=== PATIENT | male | born 1945 | race Caucasian/White ===

== ENCOUNTER → 2019-10-14 13:02 | Outpatient (BNVA) | payer OTHER, SELFPAY | PROVIDERS: Family Provider Emergency Medicine Emergency Medical Services; PCP Emergency Medicine Emergency Medical Services; Visit Provider Anesthesiology | DX: M54.5 Low back pain (principal); F17.210 Nicotine dependence, cigarettes, uncomplicated; Z79.891 Long term (current) use of opiate analgesic; Z71.6 Tobacco abuse counseling | CPT/HCPCS: 99214 ==

== ENCOUNTER → 2020-02-05 09:54 | Outpatient (BNVA) | payer OTHER, SELFPAY | PROVIDERS: Family Provider Emergency Medicine Emergency Medical Services; PCP Emergency Medicine Emergency Medical Services; Visit Provider Anesthesiology | DX: M54.41 Lumbago with sciatica, right side (principal); M54.42 Lumbago with sciatica, left side; M54.9 Dorsalgia, unspecified; F17.210 Nicotine dependence, cigarettes, uncomplicated; Z79.891 Long term (current) use of opiate analgesic | CPT/HCPCS: 99213; 99214 ==

== ENCOUNTER → 2020-04-08 09:00 | Outpatient (BNVA) | payer OTHER, SELFPAY | PROVIDERS: Family Provider Emergency Medicine Emergency Medical Services; PCP Emergency Medicine Emergency Medical Services; Visit Provider Anesthesiology | DX: M54.42 Lumbago with sciatica, left side (principal); M54.41 Lumbago with sciatica, right side; M54.9 Dorsalgia, unspecified; F17.210 Nicotine dependence, cigarettes, uncomplicated; Z79.891 Long term (current) use of opiate analgesic | CPT/HCPCS: 99213; 99214 ==

== ENCOUNTER → 2020-06-17 07:50 | Outpatient (BNVA) | payer OTHER, SELFPAY | PROVIDERS: Family Provider Emergency Medicine Emergency Medical Services; PCP Emergency Medicine Emergency Medical Services; Visit Provider Anesthesiology | DX: M54.9 Dorsalgia, unspecified (principal); F17.210 Nicotine dependence, cigarettes, uncomplicated; Z79.891 Long term (current) use of opiate analgesic | CPT/HCPCS: 99212; 99214 ==

== ENCOUNTER → 2020-08-12 07:53 | Outpatient (BNVA) | payer OTHER, SELFPAY | PROVIDERS: Family Provider Emergency Medicine Emergency Medical Services; PCP Emergency Medicine Emergency Medical Services; Visit Provider Anesthesiology | DX: M54.41 Lumbago with sciatica, right side (principal); M54.9 Dorsalgia, unspecified; F17.210 Nicotine dependence, cigarettes, uncomplicated; Z79.891 Long term (current) use of opiate analgesic | CPT/HCPCS: 99212; 99214 ==

== ENCOUNTER → 2020-10-07 09:37 | Outpatient (BNVA) | payer OTHER, SELFPAY | PROVIDERS: Family Provider Emergency Medicine Emergency Medical Services; PCP Emergency Medicine Emergency Medical Services; Visit Provider Anesthesiology | DX: M54.9 Dorsalgia, unspecified (principal); F17.210 Nicotine dependence, cigarettes, uncomplicated; Z79.891 Long term (current) use of opiate analgesic | CPT/HCPCS: 99213 ==

== ENCOUNTER → 2020-12-07 08:37 | Outpatient (BNVA) | payer OTHER, SELFPAY | PROVIDERS: Family Provider Emergency Medicine Emergency Medical Services; PCP Emergency Medicine Emergency Medical Services; Visit Provider Anesthesiology | DX: G89.29 Other chronic pain (principal); M54.41 Lumbago with sciatica, right side; M54.42 Lumbago with sciatica, left side; M54.9 Dorsalgia, unspecified; F17.210 Nicotine dependence, cigarettes, uncomplicated; Z79.891 Long term (current) use of opiate analgesic | CPT/HCPCS: 99213 ==

== ENCOUNTER → 2021-02-02 07:51 | Outpatient (BNVA) | payer OTHER, SELFPAY | PROVIDERS: Family Provider Emergency Medicine Emergency Medical Services; PCP Emergency Medicine Emergency Medical Services; Visit Provider Anesthesiology | DX: G89.29 Other chronic pain (principal); M54.5 Low back pain; F17.210 Nicotine dependence, cigarettes, uncomplicated; Z79.891 Long term (current) use of opiate analgesic | CPT/HCPCS: 99213 ==

== ENCOUNTER → 2021-04-05 07:55 | Outpatient (BNVA) | payer OTHER, SELFPAY | PROVIDERS: Family Provider Emergency Medicine Emergency Medical Services; PCP Emergency Medicine Emergency Medical Services; Visit Provider Anesthesiology | DX: G89.29 Other chronic pain (principal); M54.5 Low back pain; F17.210 Nicotine dependence, cigarettes, uncomplicated; Z79.891 Long term (current) use of opiate analgesic | CPT/HCPCS: 99213 ==

== ENCOUNTER → 2021-06-09 07:54 | Outpatient (BNVA) | payer OTHER, SELFPAY | PROVIDERS: Family Provider Emergency Medicine Emergency Medical Services; PCP Emergency Medicine Emergency Medical Services; Visit Provider Anesthesiology | DX: G89.29 Other chronic pain (principal); M54.50 Low back pain, unspecified; F17.210 Nicotine dependence, cigarettes, uncomplicated; Z79.891 Long term (current) use of opiate analgesic | CPT/HCPCS: 99213 ==

== ENCOUNTER → 2021-08-03 08:08 | Outpatient (BNVA) | payer OTHER, SELFPAY | PROVIDERS: Family Provider Emergency Medicine Emergency Medical Services; PCP Emergency Medicine Emergency Medical Services; Visit Provider Anesthesiology | DX: G89.29 Other chronic pain (principal); M54.50 Low back pain, unspecified; Z79.891 Long term (current) use of opiate analgesic; F17.200 Nicotine dependence, unspecified, uncomplicated; Z71.6 Tobacco abuse counseling | CPT/HCPCS: 99214 ==

== ENCOUNTER → 2021-10-13 09:23 | Outpatient (BNVA) | payer OTHER, SELFPAY | PROVIDERS: Family Provider Emergency Medicine Emergency Medical Services; PCP Emergency Medicine Emergency Medical Services; Visit Provider Anesthesiology | DX: G89.29 Other chronic pain (principal); M54.50 Low back pain, unspecified; F17.210 Nicotine dependence, cigarettes, uncomplicated; Z79.891 Long term (current) use of opiate analgesic; Z71.6 Tobacco abuse counseling | CPT/HCPCS: 99213 ==

== ENCOUNTER 2022-01-15 09:33 | Emergency (ER) | payer OTHER, SELFPAY ==
[2022-01-15 09:43] VITALS: BP 128/86; PULSE 120; RESP 18; O2SAT 95; BMI 26.4
[2022-01-15 09:48] VITALS: BP 128/86; PULSE 98; RESP 18; O2SAT 95
--- NOTE | 2022-01-15 10:08 | W.ED.FALL ---
HPI - Fall General: Chief Complaint: Fall Stated Complaint: thinks he may have had a stroke Time Seen by Provider: 01/15/22 09:52 Source: patient Mode of arrival: ambulatory Limitations: no limitations History of Present Illness: 76-year-old male presents emergency room with complaints of frequent falls recently. Patient states his legs it is been getting weak at some bilateral thing is not noticed any other difficulty speech swallowing or sensation. Family is at the bedside endorses been going on for some time. He also drinks on a regular basis according to the son is at the bedside patient does not really quantify how much for me. He denies chest pain or abdominal pain they have noticed some mild abdominal bloating. His balance has been poor. Patient mention he was referred to a clinic in town by the [place]. In discussing with him and its location as he described that I suspect that is the nephrology clinic patient is not sure of the name of the doctor he was being sent to see. Today when he fell he hit his head he is complaining of head neck and back pain the neck and back pain are chronic the head pain is new he denies loss of consciousness. MD complaint: fall Onset (ago): minute(s) Fall from: standing Fall witnessed: yes, by family Place fall occurred: home Loss of consciousness: None Prolonged down time: no Symptoms prior to fall: none Context: tripped/slipped and history of frequent falls Location of injury: head Associated symptoms-after fall: Reports confusion, difficulty walking and neck pain; Denies abdominal pain, chest pain, headache(s), hematuria, lightheadedness, numbness, short of breath, vertigo or weakness Review of Systems Const: Denies: fever(s), chills, body aches, change in appetite, fatigue or malaise ENMT: Denies: throat pain, ear or mastoid pain, nasal discharge or nasal congestion Card: Denies: chest pain or lightheadedness Resp: Denies: dyspnea, productive cough or non-productive cough GI: Denies: abdominal pain, nausea or vomiting : Denies: flank pain, difficulty urinating, dysuria, urinary frequency, urinary urgency or hematuria Musc: Reports: neck pain and back pain; Denies: extremity pain Skin/Breast: Denies: rash or pruritus Neuro: Reports: difficulty walking and confusion; Denies: headache(s) or vertigo PFSH ED PFSH: Medical History Apnea, sleep Ascites Benign essential HTN Chronic low back pain Encounter for long-term opiate analgesic use Hx of pancreatitis Hypercholesteremia Ileus, unspecified Presence of cardiac pacemaker Shortness of breath on exertion Smoker unmotivated to quit Family History Brother Cancer Brother Cancer Father Dementia Mother Diabetes Other Hypertension Denies family history of CAD (coronary artery disease) Clotting disorder Chronic kidney disease (CKD) Suicide Anesthesia complication Bleeding disorder Lung disease Stroke Social History Smoking and tobacco status: current every day smoker cigarettes Packs smoked per day: 1 Second hand smoke exposure: Yes Alcohol intake: never History of recent travel: No Physical Exam Const: COMMON NORMALS: no acute distress GENERAL APPEARANCE: cooperative and comfortable ORIENTATION/CONSCIOUSNESS: Yes awake, Yes oriented to person, Yes oriented to place and Yes oriented to time HENMT: COMMON NORMALS: normocephalic, atraumatic and hearing grossly normal bilaterally HEAD & SCALP: normocephalic and atraumatic Neck/C-Spine: COMMON NORMALS: no JVD Resp: COMMON NORMALS: normal respiratory effort, No retractions, No use of accessory muscles and clear to auscultation bilaterally AUSCULTATION: clear to auscultation bilaterally Cardio: COMMON NORMALS: no JVD, regular rate, regular rhythm and No murmurs present (Cardio) RATE: regular rate RHYTHM: regular rhythm GI: COMMON NORMALS: Soft to palpation and No hepatosplenomegaly present AUSCULTATION: Yes normoactive bowel sounds PALPATION: Yes Soft to palpation, No Tenderness to palpation present (GI), No Guarding due to palpation present (GI) and Yes No hepatosplenomegaly present OTHER: We would waitNonincarcerated umbilical hernia no on exam Extremity: COMMON NORMALS: normal to inspection, capillary refill normal, no clubbing, cyanosis or edema, no calf tenderness and no pedal edema Neuro: SENSORIUM/ORIENTATION: Yes oriented to person, Yes oriented to place and Yes oriented to time Skin: COMMON NORMALS: no rashes or lesions noted GENERAL SKIN EXAM: no rashes or lesions noted Course Vital Signs: Vital signs: Vital Signs Pulse Rate 102 H 01/15/22 13:55 Respiratory Rate 15 01/15/22 13:55 Blood Pressure 150/94 01/15/22 13:55 Pulse Oximetry 97 01/15/22 13:55 MDM - Fall Medical Decision Making Stroke score done patient listed as a stroke score of 4 however he has weakness in hip flexors which has been a chronic problem has been leading to his falls it is bilateral it is been getting worse per the family over the last week or so. He still has 5 of 5 strength with dorsi and plantar flexion. He is able to lift the heel up off the bed but is not able to hold it up off the bed for an extended period of time. Clinically I do not believe in combination of the rest of his exam that this represents evidence of CVA. Repeat exam prior to discharge NIH score is still essentially 0. He can lift his legs up off the bed better he actually does better with [id number] with his left leg than his right but his right leg is stronger when he does tries to the leg raising. Talk to his family. Son is very concerned about his mom's drinking think that is contributing a lot to it. They would he would like to go home family is willing to take him home son does have some concerns about how well he is going to do at home. I strongly recommend that he does not drive a male or vehicle at all. I do not feel he is medically safe to operate a motor vehicle. Addition that we will get him home health care to do gait and stability training. Strongly recommend also that he abstain from alcohol. Medical Records I reviewed the patient's medical records. Lab Data I reviewed the patient's lab results. : 01/15/22 09:50 01/15/22 09:50 Radiology Impressions Cervical Spine CT 01/15/22 10:14 IMPRESSION: No evidence of acute fracture or dislocation. Head CT 01/15/22 10:14 IMPRESSION: 1. No evidence of intracranial hemorrhage or mass effect. 2. Moderate small vessel changes moderate parenchymal volume loss. 3. Tiny chronic lacunar infarct LEFT thalamus. 4. No acute intracranial findings. Laboratory Results WBC 5.8 10^3/uL (4.0-10.0) 01/15/22 09:50 RBC 4.39 10^6/uL (4.1-5.3) 01/15/22 09:50 Hgb 14.7 g/dL (11.7-16.6) 01/15/22 09:50 Hct 42.6 % (42.0-52.0) 01/15/22 09:50 MCV 97.0 fl (80-94) H 01/15/22 09:50 MCH 33.5 pg (28.0-34.0) 01/15/22 09:50 MCHC 34.5 g/dL (30.0-36.0) 01/15/22 09:50 RDW 13.7 % (12.1-15.1) 01/15/22 09:50 Plt Count 101 10^3/cmm (130-400) L 01/15/22 09:50 MPV 11.1 fL (7.4-10.4) H 01/15/22 09:50 Neut % (Auto) 75.8 % 01/15/22 09:50 Lymph % (Auto) 11.5 % 01/15/22 09:50 Clare % (Auto) 8.1 % 01/15/22 09:50 Eos % (Auto) 2.4 % 01/15/22 09:50 Baso % (Auto) 0.7 % 01/15/22 09:50 Neut # (Auto) 4.42 10^3/uL (1.8-7.7) 01/15/22 09:50 Lymph # (Auto) 0.7 10^3/uL (0.8-4.8) L 01/15/22 09:50 Clare # (Auto) 0.5 10^3/uL (0.2-0.9) 01/15/22 09:50 Eos # (Auto) 0.1 10^3/uL (0.0-0.8) 01/15/22 09:50 Baso # (Auto) 0.0 10^3/uL (0.0-0.1) 01/15/22 09:50 Nucleated RBC % (auto) 0 % 01/15/22 09:50 Nucleated RBCs # 0.0 /100WBC 01/15/22 09:50 PT 14.70 SECONDS (12.1-14.9) 01/15/22 10:35 INR 1.12 (0.8-1.2) 01/15/22 10:35 APTT 36.2 SECONDS (23.9-36.7) 01/15/22 10:35 Sodium 129 mmol/L (136-145) L 01/15/22 09:50 Potassium 3.5 mmol/L (3.5-5.1) 01/15/22 09:50 Chloride 89 mmol/L (98-107) L 01/15/22 09:50 Carbon Dioxide 21 mmol/L (22-29) L 01/15/22 09:50 Anion Gap 22.5 (5-19) H 01/15/22 09:50 BUN 11 mg/dL (8-23) 01/15/22 09:50 Creatinine 1.1 mg/dL (0.7-1.2) 01/15/22 09:50 GFR Calculation Not Reportable 01/15/22 09:50 Glucose 115 mg/dL (65-115) 01/15/22 09:50 Calculated Osmolality 268 mOsm/kg (285-295) L 01/15/22 09:50 Calcium 8.6 mg/dL (8.5-10.5) 01/15/22 09:50 Total Bilirubin 0.8 mg/dL (0.15-1.2) 01/15/22 09:50 AST 46 U/L (0-40) H 01/15/22 09:50 ALT 52 U/L (0-41) H 01/15/22 09:50 Alkaline Phosphatase 129 IU/L (40-130) 01/15/22 09:50 Ammonia 18 umol/L (16-60) 01/15/22 10:35 Total Protein 7.3 g/dL (6.6-8.7) 01/15/22 09:50 Albumin 3.7 g/dL (3.5-5.2) 01/15/22 09:50 Globulin 3.6 g/dL (1.3-4.6) 01/15/22 09:50 Urine Color Dark yellow (Yellow) 01/15/22 13:00 Urine Appearance Clear (CLEAR) 01/15/22 13:00 Urine pH 6 (5-7) 01/15/22 13:00 Ur Specific [place] 1.015 (1.005-1.030) 01/15/22 13:00 Urine Protein 3+ (Negative) H 01/15/22 13:00 Urine Glucose (UA) Norm (Normal) 01/15/22 13:00 Urine Ketones Negative (Negative) 01/15/22 13:00 Urine Blood Neg (Negative) 01/15/22 13:00 Urine Nitrate Negative (Negative) 01/15/22 13:00 Urine Bilirubin 1+ (Negative) H 01/15/22 13:00 Urine Urobilinogen 1 mg/dL (Negative) H 01/15/22 13:00 Ur Leukocyte Esterase Negative (Negative) 01/15/22 13:00 Urine RBC None /hpf (0-2) 01/15/22 13:00 Urine WBC 5-10 /hpf (0-5) H 01/15/22 13:00 Ur Squamous Epith Cells None /hpf (0-5) 01/15/22 13:00 Amorphous Sediment 1+ /hpf 01/15/22 13:00 Urine Bacteria 2+ /hpf (NONE) H 01/15/22 13:00 Discharge Plan Discharge Patient Disposition: Home Clinical Impression: Falls, ETOH abuse, Chronic low back pain Condition: Stable Prescriptions: No Action metoprolol tartrate 50 mg tablet 50 mg PO BID 0RF tamsulosin [Flomax] 0.4 mg capsule 0.4 mg PO DAILY 0RF folic acid 1 mg tablet 1 mg PO DAILY 0RF gabapentin 300 mg capsule 300 mg PO TID 90 Days Qty: 270 0RF hydrocodone-acetaminophen 10-325 mg tablet 1 tab PO QID PRN (Reason: pain) 30 Days Qty: 120 0RF Rx Instructions: fill on or after 10/15/21 hydrocodone-acetaminophen 10-325 mg tablet 1 tab PO QID PRN (Reason: pain) 30 Days Qty: 120 0RF Rx Instructions: fill on or after 11/13/21 amlodipine 2.5 mg tablet 2.5 mg PO DAILY Qty: 90 3RF Discharge Orders: Discharge ED (Routine); Ordered 01/15/22 Ordered By: Howard Ray Referrals: Tevin Harman, [Primary Care Provider] - Discharge Diet: Usual diet Discharge Activity: Limit activity as instructed Patient Instructions: Opioid Safety Activity Restrictions/Additional Instructions: Home health will be consulted for assistance at home and physical therapy. Recommend abstinence from alcohol. Also recommend that you do not drive a motor vehicle. Coding Level of Care Code ED Diffusion Operator for Chg Fwd Exam Comprehensive NIH stroke score NIHSS Level Of Consciousness - 1a: 0 Level Of Consciousness Questions - 1b: Both Correct Level Of Consciousness Commands - 1c: Both Correct Best Gaze - 2: Normal Visual Thacker - 3: No Visual Loss Facial Palsy - 4: Normal Motor Arm Right - 5: No Drift Motor Arm Left - 5: No Drift Motor Leg Right - 6: Effort Against [place] (Unchanged from baseline per family dorsi plantar flexion strength 5 of 5) Motor Leg Left - 6: Effort Against [place] (Unchanged from baseline per family dorsi plantar flexion strength 5 of 5) Limb Ataxia - 7: Absent Sensory - 8: Normal Best Language - 9: No Aphasia Dysarthia - 10: Normal Extinction And Inattention - 11: 0 Score Total Score: 4
--- NOTE | 2022-01-15 10:14 | CT_ITS ---
WS: [id number] CT CERVICAL TRAUMA TECHNIQUE: Noncontrast CT of the cervical spine with coronal and sagittal reformatted images. CLINICAL INFORMATION: fall COMPARISON: None. DLP: 516.[address] scans at [facility] use at least one of these dose optimization techniques: automated e xposure control; mA and/or kV adjustment per patient size (includes targeted exams where dose is matc hed to clinical indication); or iterative reconstruction. FINDINGS: Straightening of the normal cervical lordosis. Mild spondylitic changes. Mild disc space narrowing C6 -C7. Normal craniocervical junction. Normal C1-C2 articulation. Dens is normal in appearance. Normal occipital condyles. No high-grade spinal canal narrowing. Normal C1 ring. No evidence of acute fractu re or dislocation. Normal prevertebral soft tissues. Mastoids air cells are well aerated. CT/CT cervical spin wo con* [id number] IMPRESSION: No evidence of acute fracture or dislocation.
--- NOTE | 2022-01-15 10:14 | ECG_ITS ---
[facility] Test Date: 2022-01-15 Pat Name: Anatoly Gaspar Department: Room: Gender: Male Application Support Analyst: : 1945 Requested By: Howard Mandel Order Number: [id number] Hernandez MD: Hawa Clemons M.D. Measurements Intervals Taylor Rate: 110 P: 87 WV: 189 QRS: 74 QRSD: 75 T: 80 QT: 323 QTc: 437 Interpretive Statements SINUS TACHYCARDIA WITH OCCASIONAL SUPRAVENTRICULAR PREMATURE COMPLEXES SEPTAL MYOCARDIAL INFARCTION , OF INDETERMINATE AGE [40+ ms Q WAVE IN V1/V2] Compared to ECG 08/28/2018 09:11:35 Myocardial infarct finding now present T-wave abnormality no longer present Electronically Signed On 01-15-2022 17:37:15 CDT by Hawa Clemons M.D. [id number]
--- NOTE | 2022-01-15 10:14 | CT_ITS ---
WS: [id number] CT HEAD TECHNIQUE: Noncontrast CT of the head obtained from the skullbase to the vertex. CLINICAL INFORMATION: fall COMPARISON: None. DLP: 771.[address] scans at [facility] use at least one of these dose optimization techniques: automated e xposure control; mA and/or kV adjustment per patient size (includes targeted exams where dose is matc hed to clinical indication); or iterative reconstruction. FINDINGS: No evidence of intracranial hemorrhage or mass effect. Ventricular system and basal cisterns are bran nt. Moderate small vessel changes with moderate parenchymal volume loss. Small chronic lacunar infarc t LEFT thalamus. Intracranial vascular calcification. No extra-axial fluid collections. No evidence o f mass or mass effect. Paranasal sinuses and mastoid air cells are well aerated. .Normal visualized soft tissues. CT/CT head wo con* [id number] IMPRESSION: 1. No evidence of intracranial hemorrhage or mass effect. 2. Moderate small vessel changes moderate parenchymal volume loss. 3. Tiny chronic lacunar infarct LEFT thalamus. 4. No acute intracranial findings.
[2022-01-15 10:18] VITALS: BP 128/86; PULSE 110; RESP 20; O2SAT 96
[2022-01-15 10:34] LABS: Basophils % 0.7 %; Eosinophils # 0.1 10^3/uL (0.0-0.8); Eosinophils % 2.4 %; Hematocrit 42.6 % (42.0-52.0); Hemoglobin 14.7 g/dL (11.7-16.6); Lymphocytes # 0.7 10^3/uL (0.8-4.8); Lymphocytes % 11.5 %; Mean Corpuscular HGB Conc 34.5 g/dL (30.0-36.0); Mean Corpuscular Hemoglobin 33.5 pg (28.0-34.0); Mean Platelet Volume 11.1 fL (7.4-10.4); Monocytes # 0.5 10^3/uL (0.2-0.9); Monocytes % 8.1 %; Neutrophils # 4.42 10^3/uL (1.8-7.7); Neutrophils % 75.8 %; Nucleated Red Blood Cells % 0 %; Platelet Count 101 10^3/cmm (130-400); Red Blood Count 4.39 10^6/uL (4.1-5.3); Red Cell Distribution Width 13.7 % (12.1-15.1); White Blood Count 5.8 10^3/uL (4.0-10.0)
[2022-01-15 10:42] LABS: Alanine Aminotransferase 52 U/L (0-41); Albumin Level 3.7 g/dL (3.5-5.2); Alkaline Phosphatase 129 IU/L (40-130); Blood Urea Nitrogen 11 mg/dL (8-23); Calcium 8.6 mg/dL (8.5-10.5); Carbon Dioxide 21 mmol/L (22-29); Chloride 89 mmol/L (98-107); Globulin 3.6 g/dL (1.3-4.6); Glucose 115 mg/dL (65-115); Osmolality Calculated 268 mOsm/kg (285-295); Sodium 129 mmol/L (136-145); Total Bilirubin 0.8 mg/dL (0.15-1.2); Total Protein 7.3 g/dL (6.6-8.7)
[2022-01-15 10:46] LABS: Anion Gap 22.5 (5-19); Aspartate Amino Transferase 46 U/L (0-40); Potassium 3.5 mmol/L (3.5-5.1)
[2022-01-15 10:55] LABS: INR 1.12 (0.8-1.2)
[2022-01-15 10:57] LABS: Partial Thromboplastin Time 36.2 SECONDS (23.9-36.7)
[2022-01-15 11:00] LABS: Ammonia 18 umol/L (16-60)
[2022-01-15 11:23] LABS: Slide Review Slide Review Perform
[2022-01-15 11:30] VITALS: BP 123/94; PULSE 106; RESP 22; O2SAT 96
[2022-01-15 13:16] LABS: Add Urine Microscopic? YES; Bilirubin Urine 1+ (Negative); Blood Urine Neg (Negative); Glucose Urine UA Norm (Normal); Ketones Urine Negative (Negative); Leukocyte Esterase Urine Negative (Negative); Nitrate Urine Negative (Negative); Protein Urine 3+ (Negative); Specific Gravity, Urine 1.015 (1.005-1.030); Urine Appearance Clear (CLEAR); Urine Color Dark Yellow (Yellow); Urobilinogen Urine 1 mg/dL (Negative); pH Urine 6 (5-7)
[2022-01-15 13:17] LABS: Add Urine Culture? No; Amorphous Sediment Urine 1+ /hpf; Bacteria Urine 2+ /hpf
--- NOTE | 2022-01-15 13:37 | PC.NURSE ---
Got patient up an walked him around the, the patient was doing better picking his feet up and was fairly sturdy on his feet.
[2022-01-15 13:53] VITALS: BP 150/94; PULSE 102; RESP 15; O2SAT 97
[2022-01-15 13:55] VITALS: BP 150/94; PULSE 102; RESP 15; O2SAT 97
== END 2022-01-15 13:50 | disposition home or self-care (01) ==
PROVIDERS: Emergency Provider Family Medicine; PCP Emergency Medicine Emergency Medical Services
DX: R29.6 Repeated falls (principal); F10.10 Alcohol abuse, uncomplicated; M62.81 Muscle weakness (generalized); M54.50 Low back pain, unspecified; G89.29 Other chronic pain; R41.0 Disorientation, unspecified; M54.2 Cervicalgia; Z79.891 Long term (current) use of opiate analgesic
CPT/HCPCS: 70450; 72125; 80053; 81001; 82140; 85025; 85610; 85730; 93005; 99284

== ENCOUNTER → 2022-05-17 12:16 | Outpatient (BNVA) | payer OTHER, SELFPAY | PROVIDERS: PCP Family Medicine; Visit Provider Internal Medicine Cardiovascular Disease | DX: I10 Essential (primary) hypertension (principal); J44.9 Chronic obstructive pulmonary disease, unspecified; Z95.0 Presence of cardiac pacemaker; F17.210 Nicotine dependence, cigarettes, uncomplicated | CPT/HCPCS: 99213 ==

== ENCOUNTER → 2022-10-05 09:30 | Outpatient (BNVA) | payer OTHER, SELFPAY | PROVIDERS: PCP Family Medicine; Visit Provider Internal Medicine Cardiovascular Disease | DX: Z45.010 Encounter for checking and testing of cardiac pacemaker pulse generator [battery] (principal) | CPT/HCPCS: 93280 ==

== ENCOUNTER → 2022-11-15 11:29 | Outpatient (BNVA) | payer OTHER, SELFPAY | PROVIDERS: PCP Family Medicine; Visit Provider Internal Medicine Cardiovascular Disease | DX: I10 Essential (primary) hypertension (principal); R06.02 Shortness of breath; E78.00 Pure hypercholesterolemia, unspecified; Z95.0 Presence of cardiac pacemaker; F17.210 Nicotine dependence, cigarettes, uncomplicated | CPT/HCPCS: 99214 ==

== ENCOUNTER 2023-01-07 10:07 | Outpatient (CLI) | payer OTHER, SELFPAY ==
--- NOTE | 2023-01-07 10:20 | USCV_ITS ---
Anatoly Gaspar Age: 77 Gender: M : 1945 Exam Date: 01/07/2023 10:32 Ordering Phys: Rita Beatty MD Technologist: CT Exam Location: [facility] [place] Indication: sob BP: 118 / HR: 63 Rhythm: Sinus Technical Quality: Adequate MEASUREMENTS (Male / Female) Normal Values 2D ECHO LV Diastolic Diameter PLAX 4.3 cm 4.2 - 5.9 / 3.9 - 5.3 cm LV Systolic Diameter PLAX 3.4 cm IVS Diastolic Thickness 0.9 cm 0.6 - 1.0 / 0.6 - 0.9 cm IVS Systolic Thickness 1.2 cm LVPW Diastolic Thickness 1.1 cm 0.6 - 1.0 / 0.6 - 0.9 cm LVPW Systolic Thickness 1.2 cm LVOT Diameter 2.0 cm LV Ejection Fraction 2D Teich 42.5 % LV Ejection Fraction MOD 2C 68.9 % LV Ejection Fraction 2C AL 70.5 % LA Diameter 3.1 cm Aorta at Sinotubular Diameter 2.7 cm IVC Diameter 1.6 cm M-MODE Aortic Annulus Diameter 3.3 cm LA Ao Ratio MM 1.1 MV E Point Septal Separation 0.8 cm DOPPLER AV Peak Velocity 316.3 cm/s LVOT Peak Velocity 114.0 cm/s AV Area Cont Eq vti 1.1 cm squared AV Area Cont Eq pk 1.2 cm squared MV Peak Velocity 106.0 cm/s MV Area PHT 1.9 cm squared Mitral E to A Ratio 0.8 MV E' Velocity 34.0 cm/s Mitral E to MV E' Ratio 10.5 Mitral E to LV E' Lateral Ratio 12.8 Mitral E to LV E' Septal Ratio 8.9 TR Peak Velocity 287.2 cm/s TR Peak Gradient 33.0 mmHg TR Mean Velocity 235.2 cm/s TR Mean Gradient 24.1 mmHg TR Velocity Time Integral 96.7 cm TV Peak E Velocity 74.0 cm/s Right Atrial Pressure 3.0 mmHg Pulmonary Artery Systolic Pressu 36.0 mmHg PV Peak Velocity 73.0 cm/s FINDINGS Left Ventricle Left ventricle is normal in size. LV systolic function is normal with EF of 55 to 60%. No regional wall motion abnormalities are seen. Grade 1 diastolic dysfunction Right Ventricle Normal in size and function Right Atrium Normal in size Left Atrium Normal in size Mitral Valve Moderate mitral annular calcification is seen. Mild mitral regurgitation. Aortic Valve Aortic valve is thickened and calcified. Moderate aortic stenosis is noted with aortic valve area of 1.01cm2 and mean gradient across aortic valve of 20mmHg Tricuspid Valve Mild tricuspid regurgitation. RVSP is 35 to 40 mmHg. This is consistent with mild pulmonary hypertension. Pulmonic Valve Not well-visualized Pericardium Normal Aorta Normal in size IVC Appears to be normal CONCLUSIONS LV systolic function is normal with EF 55 to 60% Grade 1 diastolic dysfunction Mild mitral regurgitation Moderate aortic stenosis. Mild tricuspid regurgitation Mild pulmonary hypertension No comparison studies are available. Eric Paul MD (Electronically Signed) Final Date: 07 Jan 2023 18:07 S
== END 2023-01-07 10:08 | disposition home or self-care (01) ==
LOC: RAD 10:13
PROVIDERS: PCP Family Medicine; Visit Provider Family Medicine
DX: R60.0 Localized edema (principal); I50.9 Heart failure, unspecified; I50.30 Unspecified diastolic (congestive) heart failure; I35.0 Nonrheumatic aortic (valve) stenosis; I07.1 Rheumatic tricuspid insufficiency; I27.20 Pulmonary hypertension, unspecified
CPT/HCPCS: 93306

== ENCOUNTER 2023-05-08 09:37 | Outpatient (CLI) | payer OTHER, SELFPAY ==
--- NOTE | 2023-05-08 09:46 | CT_ITS ---
WS: [id number] CT NECK TECHNIQUE: Contrast-enhanced CT of the neck with coronal and sagittal reformatted images. CLINICAL INFORMATION: LEFT SIDED SWELLING COMPARISON: None. DLP: 129.[address] scans at [facility] use at least one of these dose optimization techniques: automated e xposure control; mA and/or kV adjustment per patient size (includes targeted exams where dose is matc hed to clinical indication); or iterative reconstruction. FINDINGS: Partial visualized paranasal sinuses are well aerated. Mastoid air cells are well aerated. Cavernous carotid calcification. Normal posterior nasopharynx. Normal parapharyngeal fat. Submandibular glands are normal. Parotid glands are normal. No evidence of supraglottic or glottic mass. Normal subglottic airway. Aortic calcification. Dense bilateral carotid bulb calcification. This can be further evaluated with ultrasound. Dense cavernous carotid calcification. Lung apices are well aerated. A few tiny subpleura l nodules in the RIGHT upper lobe. Slightly spiculated nodule in the LEFT upper lobe measuring 10 x 4 mm extending to the pleura. Modera te spondylitic changes cervical spine. Enlarged lymph nodes at the thoracic inlet and infraclavicular regions extending into the anterior mediastinum with the largest measuring 12 x 12 mm in the RIGHT a nterior mediastinum. This could be further evaluated with contrast-enhanced chest CT. 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 Inflammatory changes and thickening along the nuchal ligament. IMPRESSION: 1. Spiculated irregular nodule in the LEFT upper lobe has a suspicious appearance measuring 10 x 4 m m extending to the pleura. Recommend further evaluation with chest CT. 2. Enlarged enhancing lymph nodes at the thoracic inlet and anterior mediastinum largest measuring 1 2 mm. Recommend contrast enhanced chest CT. 3. Dense carotid bulb calcification. This can be further evaluated ultrasound. 4. No evidence of supraglottic or glottic mass. 5. Normal salivary glands. 6. No evidence of LEFT neck mass.
[2023-05-08] MEDS: iohexol 350 mg/mL 500 mL Btl (per mL) IV (10:32)
== END 2023-05-08 09:38 | disposition home or self-care (01) ==
PROVIDERS: PCP Family Medicine; Visit Provider Family Medicine
DX: R59.0 Localized enlarged lymph nodes (principal); R91.1 Solitary pulmonary nodule
CPT/HCPCS: 70491; Q9967

== ENCOUNTER → 2023-06-06 11:30 | Outpatient (BNVA) | payer OTHER, SELFPAY | PROVIDERS: PCP Family Medicine; Visit Provider Internal Medicine Cardiovascular Disease | DX: Z95.0 Presence of cardiac pacemaker (principal); R94.39 Abnormal result of other cardiovascular function study; I10 Essential (primary) hypertension; E78.00 Pure hypercholesterolemia, unspecified; I35.0 Nonrheumatic aortic (valve) stenosis; J44.9 Chronic obstructive pulmonary disease, unspecified; F17.210 Nicotine dependence, cigarettes, uncomplicated | CPT/HCPCS: 99214 ==

== ENCOUNTER 2023-06-19 07:41 | Outpatient (CLI) | payer OTHER, SELFPAY ==
--- NOTE | 2023-06-19 07:47 | CT_ITS ---
WS: [id number] CT CHEST TECHNIQUE: Contrast enhanced CT of the chest with coronal and sagittal reformatted images. CLINICAL INFORMATION: FOLLOW UP TO CT OF THE NECK COMPARISON: CT neck 05/08/2023 DLP: 252.[address] scans at [facility] use at least one of these dose optimization techniques: automated e xposure control; mA and/or kV adjustment per patient size (includes targeted exams where dose is matc hed to clinical indication); or iterative reconstruction. FINDINGS: Previously described spiculated nodule in the LEFT upper lobe anterior laterally has decreased in siz e compared to previous and is less dense today measuring 4 mm. This is likely infectious or inflammat ory. Recommend 6-month follow-up. Advanced chronic emphysematous changes. Bronchiectasis in the RIGHT greater than LEFT lower lobes wit h subpleural reticular opacities. Calcified granulomas. Normal caliber thoracic aorta. Aortic calcification. Coronary calcification. Numerous anterior medias tinal lymph nodes not pathologically enlarged. Previously described RIGHT paratracheal lymph node sli ghtly smaller today measuring 8.5 mm in short axis dimension likely inflammatory. No axillary lymphad enopathy. Adrenal glands are normal. Diffuse fatty filtration of the liver. Diffuse gastric rugal thickening wi th enhancement suspicious for gastritis and esophagitis. Thickening in the distal esophagus. Splenic artery calcification. Pancreatic atrophy. Disc osteophyte complex in the midthoracic spine with mild to moderate central canal stenosis at T8-T9. IMPRESSION: 1. Previously described spiculated nodule in the LEFT upper lobe anterolaterally has decreased in si ze which is reassuring measuring 4 mm. Recommend 6-month follow-up. 2. Previously described RIGHT paratracheal lymph node in the upper mediastinum is stable to slightly smaller today measuring 8.4 mm. 3. Numerous normal sized mediastinal lymph nodes. 4. Suspected esophagitis and gastritis. 5. Disc osteophyte complex in the midthoracic spine with mild to moderate central canal stenosis at T8-T9. 6. No other acute findings.
--- NOTE | 2023-06-19 07:47 | USCV_ITS ---
Anatoly Gaspar Age: 77 Gender: M : 1945 Exam Date: 06/19/2023 08:11 Ordering Phys: Rita Beatty MD Technologist: NILS Exam Location: [facility] [place] Indication: F/U CT NECK EVAL FOR CAROTID STENOSIS Risk Factors: Previous Vascular Surgery: Right Brachial BP: / Left Brachial BP: / Right Left Velocity (cm/s) Spectral Plaque Velocity (cm/s) Spectral Plaque Syst/Diast Broadening Syst/Diast Broadening 53.60/ 12.10 Prox CCA 54.40 / 19.40 78.50/ 19.10 Mid CCA 81.60 / 24.90 68.30/ 19.10 Distal CCA 100.60/ 24.60 70.30/ 11.20 Prox ICA 74.80 / 24.10 64.60/ 22.90 Mid ICA 79.00 / 20.50 82.30/ 30.00 Distal ICA 72.50 / 18.60 83.60 ECA 107.40 1.05 ICA/CCA 0.79 Antegrade Vertebral Antegrade 50.00/ 17.10 cm/s 36.50/ 14.00 cm/s Tri Subclavian Tri 90.60 97.00 CONCLUSIONS Right ICA stenosis <50%. Moderate atheromatous plaque right carotid bulb/ICA. Advanced calcified plaque mid Right CCA. Left ICA stenosis <50%. Moderate atheromatous plaque left carotid bulb/ICA. Normal antegrade Doppler flow noted in the right vertebral artery. Normal antegrade Doppler flow noted in the left vertebral artery. Jacques Awad MD (Electronically Signed) Final Date: 19 June 2023 09:45 S
[2023-06-19] MEDS: iohexol 350 mg/mL 500 mL Btl (per mL) IV (08:36)
== END 2023-06-19 07:42 | disposition home or self-care (01) ==
LOC: RAD 07:42
PROVIDERS: PCP Family Medicine; Visit Provider Family Medicine
DX: Z01.89 Encounter for other specified special examinations (principal); R91.1 Solitary pulmonary nodule; I65.23 Occlusion and stenosis of bilateral carotid arteries
CPT/HCPCS: 71260; 93880; Q9967

== ENCOUNTER → 2023-07-23 14:15 | Outpatient (BNVA) | payer OTHER, SELFPAY | PROVIDERS: PCP Family Medicine; Visit Provider Internal Medicine Pulmonary Disease | DX: J44.9 Chronic obstructive pulmonary disease, unspecified (principal); R91.1 Solitary pulmonary nodule; R59.9 Enlarged lymph nodes, unspecified; F17.210 Nicotine dependence, cigarettes, uncomplicated | CPT/HCPCS: 99204 ==

== ENCOUNTER 2023-08-21 12:33 | Outpatient (CLI) | payer OTHER, SELFPAY ==
[2023-08-21 13:03] VITALS: PULSE 84; RESP 18; O2SAT 97
[2023-08-21] MEDS: albuterol 2.5 mg/3 mL Neb INHALATION (13:07)
[2023-08-21 13:08] VITALS: PULSE 86
== END 2023-08-21 12:34 | disposition home or self-care (01) ==
LOC: RT 12:34
PROVIDERS: PCP Family Medicine; Visit Provider Internal Medicine Pulmonary Disease
DX: J44.9 Chronic obstructive pulmonary disease, unspecified (principal)
CPT/HCPCS: 94060; 94618; 94726; 94729; J7613

== ENCOUNTER → 2023-09-24 13:00 | Outpatient (BNVA) | payer OTHER, SELFPAY | PROVIDERS: PCP Family Medicine; Visit Provider Internal Medicine Pulmonary Disease | DX: R91.1 Solitary pulmonary nodule (principal); J44.9 Chronic obstructive pulmonary disease, unspecified; Z71.6 Tobacco abuse counseling; R59.9 Enlarged lymph nodes, unspecified; F17.210 Nicotine dependence, cigarettes, uncomplicated | CPT/HCPCS: 99214 ==